=== PATIENT | male | born 1970 | race Hispanic/Latino ===

== ENCOUNTER 2019-11-06 18:24 | Emergency (ER) | payer OTHER ==
[~2019-11-06] VITALS: Ht 167.6 cm; Wt 81.6 kg
[2019-11-06] MEDS ORDERED: ASPIRIN 81 MG CHEW TAB PO ONE (19:00)
[2019-11-06 19:16] LABS: BASOPHILS # (AUTO) 0.1 (0.0-0.1); BASOPHILS % 0.5 % (0.0-1.0); EOSINOPHILS # (AUTO) 0.3 (0.0-0.4); EOSINOPHILS % 2.6 % (0.0-6.0); HEMATOCRIT 43.6 % (38.2-49.6); HEMOGLOBIN 13.5 g/dL (14.0-18.0); LYMPHOCYTES # (AUTO) 1.1 (1.0-3.2); LYMPHOCYTES % 11.2 % (18.0-39.1); MEAN CORPUSCULAR HEMOGLOBIN 25.7 pg (28-32); MEAN CORPUSCULAR VOLUME 82.9 fL (81-99); MONOCYTES # (AUTO) 0.9 (0.2-0.8); MONOCYTES % 9.4 % (4.4-11.3); NEUTROPHILS # (AUTO) 7.6 (2.1-6.9); NEUTROPHILS % 75.9 % (38.7-80.0); PLATELET COUNT 378 x10e3/uL (140-360); RED BLOOD COUNT 5.26 x10e6/uL (4.3-5.7); RED CELL DISTRIBUTION WIDTH 16.2 % (11.7-14.4)
[2019-11-06 19:26] LABS: INR 0.96; PROTHROMBIN TIME 13.3 seconds (11.9-14.5)
[2019-11-06 19:27] LABS: PARTIAL THROMBOPLASTIN TIME 30.5 seconds (23.8-35.5)
[2019-11-06 19:36] LABS: ALBUMIN 3.3 g/dL (3.5-5.0); ALBUMIN/GLOBULIN RATIO 0.9 (0.8-2.0); ANION GAP 11.7 mmol/L (8-16); CALCIUM 9.2 mg/dL (8.4-10.2); CREATININE, SERUM 1.81 mg/dL (0.72-1.25); POTASSIUM 3.7 mmol/L (3.5-5.1)
[2019-11-06 19:44] LABS: AMPHETAMINES SCREEN,URINE POSITIVE (NEGATIVE); PHENCYCLIDINE SCREEN,URINE NEGATIVE (NEGATIVE)
[2019-11-06 19:44] LABS: CREATINE KINASE MB 3.7 ng/mL (0-5.0)
[2019-11-06 19:45] LABS: BENZODIAZEPINES SCREEN,URINE NEGATIVE (NEGATIVE)
--- NOTE | 2019-11-06 20:50 | Diagnostic Imaging Report ---
EXAMINATION: CHEST SINGLE (PORTABLE) INDICATION: Chest pain. COMPARISON: None FINDINGS: TUBES and LINES: None. Single lead left-sided AICD. LUNGS: Lungs are mildly hyperinflated. Patchy density in the lung bases may represent subsegmental atelectasis. PLEURA: No pleural effusion or pneumothorax. HEART AND MEDIASTINUM: Cardiac size is mildly enlarged. BONES AND SOFT TISSUES: No acute osseous lesion. Soft tissues are unremarkable. UPPER ABDOMEN: No free air under the diaphragm. IMPRESSION: Bibasilar subsegmental atelectasis. Signed by: Dr. Darian Agee M.D. on 11/06/2019 8:47 PM
[2019-11-06] MEDS ORDERED: LASIX40 MG PO (22:14)
--- NOTE | 2019-11-06 22:40 | Emergency Department Note ---
History of Present Illnes History of Present Illness Chief Complaint: Chest Pain History of Present Illness This is a 49 year old male . Chief Complaint Comment PATIENT IN FROM HOME WITH COMPLAINTS OF CHEST PAIN X 2 HOURS; PATIENT WITH HISTORY OF CONGESTIVE HEART FAILURE AND IN; PATIENT WITH PACEMAKER/AICD. PATIENT APPEARS IN NO DISTRESS, RESP EVEN AND NONLABORED, RATES PAIN 8/10, EKG DONE IN TRIAGE Historian: Patient, Family Member Arrival Mode: Car Past Medical/Family History Physician Review I have reviewed the patient's past medical and family history. Any updates have been documented here. Past Medical History Recent Fever: No Clinical Suspicion of Infectio: No New/Unexplained Change in Ment: No Past Medical History: Hypertension, CHF, [place], Asthma Past Surgical History: Pacer/AICD Social History Smoking Cessation: Smoker current status unk Alcohol Use: None Any Illegal Drug Use: Yes (METH) TB Exposure/Symptoms: No Physically hurt or threatened: No Family History Family history of heart diseas: No Other Last Tetanus: UNKNOWN Any Pre-Existing Lines (PICC,: No Is patient up to date on immun: Yes Last Flu: DENIES Last Pneumovax: DENIES Physical Exam Related Data Allergies: Coded Allergies: iodine (Verified Allergy, Mild, TINGLING AND HIVES, 11/06/19) Triage Vital Signs Vital Signs Date Time Temp Pulse Resp B/P (MAP) Pulse Ox O2 Delivery O2 Flow Rate FiO2 11/06/19 18:40 96.6 73 18 94/60 97 Vital signs reviewed: Yes Physical Exam CONSTITUTIONAL Constitutional: Present well-developed, Present well-nourished HENT HENT: Present normocephalic, Present atraumatic, Present oropharynx clear/moshe st, Present nose normal HENT L/R: Present left ext ear normal, Present right ext ear normal EYES Eyes: Reports PERRL, Reports conjunctivae normal NECK Neck: Present ROM normal PULMONARY Pulmonary: Present effort normal, Present breath sounds normal CARDIOVASCULAR Cardiovascular: Present regular rhythm, Present heart sounds normal, Present capillary refill normal, Present normal rate GASTROINTESTINAL Abdominal: Present soft, Present nontender, Present bowel sounds normal GENITOURINARY Genitourinary: Present exam deferred SKIN Skin: Present warm, Present dry MUSCULOSKELETAL Musculoskeletal: Present ROM normal NEUROLOGICAL Neurological: Present alert, Present oriented x 3, Present no gross motor or sensory deficits PSYCHOLOGICAL Psychological: Present mood/affect normal, Present judgement normal Results Laboratory Result Diagram: 11/06/19 1859 11/06/19 1859 Laboratory Laboratory Tests Test 11/06/19 19:01 11/06/19 18:59 Urine Opiates Screen Negative (NEGATIVE) Urine Methadone Screen Negative (NEGATIVE) Urine Barbiturates Screen Negative (NEGATIVE) Urine Phencyclidine Screen Negative (NEGATIVE) Urine Amphetamines Screen Positive (NEGATIVE) Urine Methamphetamines Screen Positive (NEGATIVE) Urine Benzodiazepines Screen Negative (NEGATIVE) Urine Cocaine Screen Negative (NEGATIVE) Urine Cannabinoids Screen Negative (NEGATIVE) White Blood Count 9.97 x10e3/uL (4.8-10.8) Red Blood Count 5.26 x10e6/uL (4.3-5.7) Hemoglobin 13.5 g/dL (14.0-18.0) Hematocrit 43.6 % (38.2-49.6) Mean Corpuscular Volume 82.9 fL (81-99) Mean Corpuscular Hemoglobin 25.7 pg (28-32) Mean Corpuscular Hemoglobin Concent 31.0 g/dL (31-35) Red Cell Distribution Width 16.2 % (11.7-14.4) Platelet Count 378 x10e3/uL (140-360) Neutrophils (%) (Auto) 75.9 % (38.7-80.0) Lymphocytes (%) (Auto) 11.2 % (18.0-39.1) Monocytes (%) (Auto) 9.4 % (4.4-11.3) Eosinophils (%) (Auto) 2.6 % (0.0-6.0) Basophils (%) (Auto) 0.5 % (0.0-1.0) Neutrophils # (Auto) 7.6 (2.1-6.9) Lymphocytes # (Auto) 1.1 (1.0-3.2) Monocytes # (Auto) 0.9 (0.2-0.8) Eosinophils # (Auto) 0.3 (0.0-0.4) Basophils # (Auto) 0.1 (0.0-0.1) Absolute Immature Granulocyte (auto 0.04 x10e3/uL (0-0.1) Prothrombin Time 13.3 seconds (11.9-14.5) Prothromb Time International Ratio 0.96 Activated Partial Thromboplast Time 30.5 seconds (23.8-35.5) Sodium Level 137 mmol/L (136-145) Potassium Level 3.7 mmol/L (3.5-5.1) Chloride Level 104 mmol/L (98-107) Carbon Dioxide Level 25 mmol/L (22-29) Anion Gap 11.7 mmol/L (8-16) Blood Urea Nitrogen 25 mg/dL (7-26) Creatinine 1.81 mg/dL (0.72-1.25) Estimat Glomerular Filtration Rate 40 ML/MIN (60-) BUN/Creatinine Ratio 14 (6-25) Glucose Level 109 mg/dL (74-118) Calcium Level 9.2 mg/dL (8.4-10.2) Total Bilirubin 0.9 mg/dL (0.2-1.2) Aspartate Amino Transf (AST/SGOT) 28 IU/L (5-34) Alanine Aminotransferase (ALT/SGPT) 24 IU/L (0-55) Alkaline Phosphatase 89 IU/L (40-150) Creatine Kinase 379 IU/L (30-200) Creatine Kinase MB 3.70 ng/mL (0-5.0) Troponin I 0.028 ng/mL (0-0.300) B-Type Natriuretic Peptide 439.9 pg/mL (0-100) Total Protein 7.1 g/dL (6.5-8.1) Albumin 3.3 g/dL (3.5-5.0) Globulin 3.8 g/dL (2.3-3.5) Albumin/Globulin Ratio 0.9 (0.8-2.0) Lab results reviewed: Yes Imaging Imaging results reviewed: Yes Impressions IMPRESSION: Bibasilar subsegmental atelectasis. Procedures 12 Lead ECG Interpretation ECG Interpretation : ECG: ECG 1 Developmental Services Worker: Interpreted by ED physician Prior ECG tracings: reviewed QRS axis: normal ST segments normal: Yes T waves normal: Yes Clinical Impression: normal ECG Assessment & Plan Medical Decision Making MDM 49-year-old well-appearing male arrives to the ED with complaints of chest pain triage prior to arrival. Unravels the ED and cardiac markers and chest x-ray unremarkable. Patient has a high risk of acute coronary syndrome secondary to underlying medical history. Patient refused a second set of cardiac markers and EKG, reported feeling well. 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 Patient understands the risk of leaving without complete medical care. Patient was understanding and patient will return to the wrist from any time. Patient has decided to leave the hospital against medical advice. At this time re-evaluated patient and discussed at bedside the followin. Capacity: Patient has capacity to communicate, ability to understand information, and the ability to manipulate the information presented to make a logical decision. 2. Communication of risk: Discussed with patient at bedside potential risks, potential outcomes, alternative approaches in a patient-centered manner. We discussed the specific risks of an acute coronary event, unstable angina or any other acute coronary syndrome, including worsening condition, and . Patient understands we would welcome a return visit at any time to complete the work-up. At this time, patient is discharged from my care. Assessment & Plan Final Impression: (1) Chest pain (2) Methamphetamine abuse (3) Amphetamine abuse Depart Disposition: HOME, SELF-CARE Last Vital Signs Date Time Temp Pulse Resp B/P (MAP) Pulse Ox O2 Delivery O2 Flow Rate FiO2 11/06/19 22:09 79 20 152/95 100 11/06/19 18:40 96.6 Home Meds Active Scripts Furosemide (LASIX) 40 Mg Tablet, 40 MG PO DAILY, #30 TAB Prov:CHRIS ROBERTSON DO 11/06/19 Medications in the ED Aspirin 81 mg PRN ONCE PO ; Start 11/06/19 at 19:00; Stop 11/06/19 at 19:04; Status DC CHRIS ROBERTSON DO Nov 06, 2019 22:40
== END 2019-11-06 22:20 | disposition home or self-care (01) ==
LOC: ER 20:11
DX: R07.9 Chest pain, unspecified (principal); F15.10 Other stimulant abuse, uncomplicated; I10 Essential (primary) hypertension; I50.9 Heart failure, unspecified; I25.2 Old myocardial infarction; Z95.810 Presence of automatic (implantable) cardiac defibrillator; F17.210 Nicotine dependence, cigarettes, uncomplicated
CPT/HCPCS: 36415; 71045; 80053; 80307; 82550; 82553; 83880; 84484; 85025; 85610; 85730; 93005; 99284

== ENCOUNTER 2022-01-13 07:07 | Inpatient (IN) | payer OTHER ==
[~2022-01-13] VITALS: Ht 167.6 cm; Wt 81.6 kg
[2022-01-13] VITALS (26 sets, daily range): BP systolic 126–166; BP diastolic 62–115
[~2022-01-13 07:07] MED LIST: LASIX40 MG PO; SODIUM CHLORIDE FLUSH 10 ML SYR IV PRN
[2022-01-13] MEDS ORDERED: METHYLPREDNISOLONE SOD SUCC 125 MG/2ML VIAL IV ONE ×2 (07:30→12:45)
[2022-01-13] MEDS ORDERED: ALBUTEROL/IPRATROPIUM 3 ML NEB NEB ONE ×2 (07:30→13:30)
[2022-01-13 07:35] LABS: BASOPHILS % 0.3 % (0.0-1.0); EOSINOPHILS # (AUTO) 0.2 (0.0-0.4); HEMOGLOBIN 11.4 g/dL (14.0-18.0); LYMPHOCYTES # (AUTO) 1.3 (1.0-3.2); LYMPHOCYTES % 22.5 % (18.0-39.1); MEAN CORPUSCULAR HEMOGLOBIN 27.1 pg (28-32); MEAN CORPUSCULAR HGB CONC 31.7 g/dL (31-35); MEAN CORPUSCULAR VOLUME 85.5 fL (81-99); MONOCYTES # (AUTO) 0.8 (0.2-0.8); MONOCYTES % 12.7 % (4.4-11.3); NEUTROPHILS # (AUTO) 3.6 (2.1-6.9); NEUTROPHILS % 61.3 % (38.7-80.0); PLATELET COUNT 223 x10e3/uL (140-360); RED BLOOD COUNT 4.21 x10e6/uL (4.3-5.7); RED CELL DISTRIBUTION WIDTH 18.2 % (11.7-14.4)
[2022-01-13 07:45] LABS: INR 1.17; PROTHROMBIN TIME 15.9 seconds (11.9-14.5)
[2022-01-13 07:46] LABS: PARTIAL THROMBOPLASTIN TIME 36.7 seconds (23.8-35.5)
[2022-01-13 07:57] LABS: ALBUMIN 3.3 g/dL (3.5-5.0); ALBUMIN/GLOBULIN RATIO 0.8 (0.8-2.0); ANION GAP 14.8 mmol/L (8-16); CALCIUM 8.6 mg/dL (8.4-10.2); CREATININE, SERUM 1.45 mg/dL (0.72-1.25); POTASSIUM 3.8 mmol/L (3.5-5.1)
[2022-01-13] MEDS ORDERED: ASPIRIN 325 MG TAB PO ONE (08:00)
[2022-01-13 08:41] LABS: CLARITY,URINE CLEAR (CLEAR); COLOR,URINE YELLOW (YELLOW); LEUKOCYTE ESTERASE ,URINE NEGATIVE (NEGATIVE); NITRITE,URINE NEGATIVE (NEGATIVE)
[2022-01-13 08:42] LABS: KETONES,URINE NEGATIVE (NEGATIVE); PROTEIN,URINE DIPSTICK >=300 (NEGATIVE)
[2022-01-13 08:48] LABS: AMPHETAMINES SCREEN,URINE POSITIVE (NEGATIVE)
[2022-01-13 08:49] LABS: BENZODIAZEPINES SCREEN,URINE NEGATIVE (NEGATIVE); PHENCYCLIDINE SCREEN,URINE NEGATIVE (NEGATIVE)
[2022-01-13 08:57] LABS: BACTERIA,URINE FEW /HPF; EPITHELIAL CELLS,URINE RARE /LPF; RBC,URINE 0-5 /HPF (0-5); WBC,URINE (MAN) 0-5 /HPF (0-5)
[2022-01-13] MEDS ORDERED: FUROSEMIDE INJ 10 MG/ML 4 ML VIAL IV ONE ×2 (09:00→10:45)
[2022-01-13] MEDS ORDERED: ALBUTEROL/IPRATROPIUM 3 ML NEB NEB PRN (09:30)
[2022-01-13] MEDS ORDERED: ONDANSETRON HCL INJ 2MG/ML 2ML 2 MG/ML VIAL IV PRN (09:30)
[2022-01-13] MEDS ORDERED: ASPIRIN 81 MG CHEW TAB PO ONE (09:30)
[2022-01-13] MEDS ORDERED: SODIUM CHLORIDE 0.9% 250ML 250 ML ONE (09:37)
[2022-01-13] MEDS ORDERED: ENOXAPARIN INJ 80 MG/0.8 ML SYR SC STA (10:30)
[2022-01-13] MEDS ORDERED: DIPHENHYDRAMINE HCL INJ 50 MG/ML VIAL IV ONE (10:30)
[2022-01-13] MEDS ORDERED: ONDANSETRON HCL INJ 2MG/ML 2ML 2 MG/ML VIAL IV ONE (10:30)
[2022-01-13] MEDS ORDERED: FAMOTIDINE 20 MG/2 ML VIAL IV ONE (10:30)
[2022-01-13] MEDS ORDERED: NITROGLYCERIN 2% OINT 1 GM PKT TOP ONE (10:45)
[2022-01-13 11:22] LABS: ABG PH 7.44 (7.35-7.45)
[2022-01-13 11:23] LABS: ABG PCO2 31 mmHg (35-45)
[2022-01-13 11:24] LABS: ABG HCO3 17 mmol/L (22-26); ABG PO2 108 mmHg (80-105); ABG TCO2 18
[2022-01-13] MEDS ORDERED: ENOXAPARIN INJ 80 MG/0.8 ML SYR SC ONE (11:30)
[2022-01-13] MEDS ORDERED: SODIUM CHLORIDE 0.9% 1000ML 1,000 ML IV ONE (12:45)
[2022-01-13 15:12] LABS: CREATINE KINASE MB 2.8 ng/mL (0-5.0)
[2022-01-13] MEDS: VALSARTAN/SACUBITRIL 24MG/26MG 1 EA TAB PO SCH (21:43)
[2022-01-13] MEDS: FUROSEMIDE INJ 10 MG/ML 4 ML VIAL IV SCH (21:43)
[2022-01-14] VITALS (65 sets, daily range): BP systolic 4–163; BP diastolic 65–140
[2022-01-14 06:47] LABS: BASOPHILS % 0.1 % (0.0-1.0); HEMATOCRIT 39.6 % (38.2-49.6); HEMOGLOBIN 12.5 g/dL (14.0-18.0); LYMPHOCYTES # (AUTO) 0.9 (1.0-3.2); LYMPHOCYTES % 9.1 % (18.0-39.1); MEAN CORPUSCULAR HEMOGLOBIN 26.6 pg (28-32); MEAN CORPUSCULAR HGB CONC 31.6 g/dL (31-35); MEAN CORPUSCULAR VOLUME 84.3 fL (81-99); MONOCYTES # (AUTO) 1.8 (0.2-0.8); MONOCYTES % 18.3 % (4.4-11.3); NEUTROPHILS # (AUTO) 6.9 (2.1-6.9); NEUTROPHILS % 72.2 % (38.7-80.0); PLATELET COUNT 247 x10e3/uL (140-360); RED CELL DISTRIBUTION WIDTH 17.5 % (11.7-14.4)
[2022-01-14 07:05] LABS: ALBUMIN 3.1 g/dL (3.5-5.0); ALBUMIN/GLOBULIN RATIO 0.8 (0.8-2.0); ANION GAP 17.5 mmol/L (8-16); CALCIUM 8.6 mg/dL (8.4-10.2); CREATININE, SERUM 1.4 mg/dL (0.72-1.25); POTASSIUM 3.5 mmol/L (3.5-5.1)
[2022-01-14 08:33] LABS: CREATINE KINASE MB 2.2 ng/mL (0-5.0)
[2022-01-14] MEDS: FUROSEMIDE INJ 10 MG/ML 4 ML VIAL IV SCH ×2 (08:56→22:09)
[2022-01-14] MEDS: ASPIRIN 81 MG CHEW TAB PO SCH (08:58)
[2022-01-14] MEDS: VALSARTAN/SACUBITRIL 24MG/26MG 1 EA TAB PO SCH ×2 (08:58→22:09)
[2022-01-14] MEDS ORDERED: CARVEDILOL 3.125 MG TAB PO SCH (09:00)
[2022-01-14] MEDS ORDERED: POTASSIUM CHLORIDE 20 MEQ TAB CR PO ONE (13:00)
[2022-01-14 14:27] LABS: CREATINE KINASE MB 2.1 ng/mL (0-5.0)
[2022-01-14] MEDS: CARVEDILOL 3.125 MG TAB PO SCH (16:40)
[2022-01-15] VITALS (7 sets, daily range): BP systolic 99–124; BP diastolic 64–88
[2022-01-15 07:15] LABS: BASOPHILS # (AUTO) 0.1 (0.0-0.1); BASOPHILS % 0.7 % (0.0-1.0); EOSINOPHILS # (AUTO) 0.2 (0.0-0.4); EOSINOPHILS % 1.9 % (0.0-6.0); HEMATOCRIT 41.7 % (38.2-49.6); HEMOGLOBIN 13.7 g/dL (14.0-18.0); LYMPHOCYTES # (AUTO) 1.6 (1.0-3.2); LYMPHOCYTES % 19.5 % (18.0-39.1); MEAN CORPUSCULAR HEMOGLOBIN 26.9 pg (28-32); MEAN CORPUSCULAR HGB CONC 32.9 g/dL (31-35); MEAN CORPUSCULAR VOLUME 81.9 fL (81-99); MONOCYTES # (AUTO) 1.2 (0.2-0.8); MONOCYTES % 14.5 % (4.4-11.3); NEUTROPHILS # (AUTO) 5.1 (2.1-6.9); PLATELET COUNT 289 x10e3/uL (140-360); RED BLOOD COUNT 5.09 x10e6/uL (4.3-5.7); RED CELL DISTRIBUTION WIDTH 18.3 % (11.7-14.4)
[2022-01-15 07:43] LABS: ALBUMIN 2.8 g/dL (3.5-5.0); ALBUMIN/GLOBULIN RATIO 0.8 (0.8-2.0); ANION GAP 12.6 mmol/L (8-16); CALCIUM 8.3 mg/dL (8.4-10.2); CREATININE, SERUM 1.38 mg/dL (0.72-1.25); POTASSIUM 3.6 mmol/L (3.5-5.1)
[2022-01-15] MEDS: CARVEDILOL 3.125 MG TAB PO SCH ×2 (08:25→17:04)
[2022-01-15] MEDS: VALSARTAN/SACUBITRIL 24MG/26MG 1 EA TAB PO SCH ×2 (08:26→21:35)
[2022-01-15] MEDS: ASPIRIN 81 MG CHEW TAB PO SCH (08:26)
[2022-01-15] MEDS: FUROSEMIDE INJ 10 MG/ML 4 ML VIAL IV SCH (08:27)
[2022-01-15] MEDS ORDERED: SODIUM CHLORIDE 0.9% 250ML 250 ML ONE (08:33)
[2022-01-15] MEDS ORDERED: ONDANSETRON HCL 4 MG ORAL DISINTEGRATING TAB PO PRN (11:00)
[2022-01-15] MEDS: FUROSEMIDE 40 MG TAB PO SCH (17:04)
[2022-01-16 01:06] VITALS: BP 117/70
[2022-01-16 05:00] VITALS: BP 133/93
[2022-01-16] MEDS: FUROSEMIDE 40 MG TAB PO SCH (06:50)
[2022-01-16 07:44] VITALS: BP 135/88
[2022-01-16] MEDS ORDERED: AZITHROMYCIN 250 MG TAB PO SCH (09:00)
[2022-01-16 09:16] VITALS: BP 135/88
[2022-01-16] MEDS: ASPIRIN 81 MG CHEW TAB PO SCH (09:20)
[2022-01-16] MEDS: VALSARTAN/SACUBITRIL 24MG/26MG 1 EA TAB PO SCH (09:20)
[2022-01-16] MEDS: CARVEDILOL 3.125 MG TAB PO SCH (09:20)
[2022-01-16] MEDS ORDERED: CARVEDILOL3.125 MG PO (10:03)
[2022-01-16] MEDS ORDERED: LASIX40 MG PO (10:05)
[2022-01-16] MEDS ORDERED: POTASSIUM CHLO20 ME1 PO (10:06)
[2022-01-16] MEDS ORDERED: ENTRESTO 24 MG1 EACH (10:07)
[2022-01-16] MEDS ORDERED: ATORVASTATIN CA20 MG PO (10:07)
== END 2022-01-16 10:24 | disposition home or self-care (01) | DRG 291 ==
LOC: ER 07:11 → ERHOLD 09:33 → ICU 14:30 → MED/SURG2 01-14 17:48
DX: I13.0 Hypertensive heart and chronic kidney disease with heart failure and stage 1 through stage 4 chronic kidney disease, or unspecified chronic kidney disease (principal); I50.23 Acute on chronic systolic (congestive) heart failure; J45.901 Unspecified asthma with (acute) exacerbation; N17.9 Acute kidney failure, unspecified; N18.9 Chronic kidney disease, unspecified; E11.22 Type 2 diabetes mellitus with diabetic chronic kidney disease; F17.200 Nicotine dependence, unspecified, uncomplicated; F15.10 Other stimulant abuse, uncomplicated; I25.10 Atherosclerotic heart disease of native coronary artery without angina pectoris; I08.1 Rheumatic disorders of both mitral and tricuspid valves; K76.1 Chronic passive congestion of liver; D64.9 Anemia, unspecified; Z91.041 Radiographic dye allergy status; Z95.810 Presence of automatic (implantable) cardiac defibrillator; Z72.89 Other problems related to lifestyle; Z20.822 Contact with and (suspected) exposure to COVID-19
CPT/HCPCS: 36415; 71045; 71250; 74176; 78580; 80053; 80307; 81001; 82140; 82550; 82553; 82805; 83605; 83880; 84484; 85025; 85610; 85730; 87040; 93005; 93306; 94660; 94799; 99285; A9540; J0456; J0696; J1650; J1940; J2930; J7050

== ENCOUNTER 2022-02-18 20:27 | Emergency (ER) | payer OTHER ==
[~2022-02-18] VITALS: Ht 167.6 cm; Wt 81.6 kg
[~2022-02-18 20:27] MED LIST changes: +ATORVASTATIN CA20 MG PO; +CARVEDILOL3.125 MG PO; +ENTRESTO 24 MG1 EACH; +POTASSIUM CHLO20 ME1 PO; -SODIUM CHLORIDE FLUSH 10 ML SYR IV PRN
[2022-02-18] MEDS ORDERED: SODIUM CHLORIDE 0.9% 1000ML 1,000 ML IV STA ×2 (21:02→21:08)
[2022-02-18] MEDS ORDERED: ACETAMINOPHEN 325 MG TAB PO STA (21:05)
[2022-02-18 21:33] LABS: ALBUMIN 3.3 g/dL (3.5-5.0); ALBUMIN/GLOBULIN RATIO 0.8 (0.8-2.0); ANION GAP 13.5 mmol/L (8-16); CALCIUM 8.5 mg/dL (8.4-10.2); CREATININE, SERUM 1.93 mg/dL (0.72-1.25); POTASSIUM 3.5 mmol/L (3.5-5.1)
[2022-02-18 21:38] LABS: AMPHETAMINES SCREEN,URINE POSITIVE (NEGATIVE); BENZODIAZEPINES SCREEN,URINE NEGATIVE (NEGATIVE); CLARITY,URINE CLEAR (CLEAR); COLOR,URINE YELLOW (YELLOW); KETONES,URINE NEGATIVE (NEGATIVE); LEUKOCYTE ESTERASE ,URINE NEGATIVE (NEGATIVE); NITRITE,URINE NEGATIVE (NEGATIVE); PHENCYCLIDINE SCREEN,URINE NEGATIVE (NEGATIVE); PROTEIN,URINE DIPSTICK NEGATIVE (NEGATIVE); URINE UROBILINOGEN 1 mg/dL (0.2 - 1)
[2022-02-18 21:41] LABS: BACTERIA,URINE FEW /HPF; EPITHELIAL CELLS,URINE FEW /LPF; RBC,URINE 0-5 /HPF (0-5); WBC,URINE (MAN) 0-5 /HPF (0-5)
[2022-02-18 21:44] LABS: CREATINE KINASE MB 0.4 ng/mL (0-5.0)
[2022-02-18 21:45] LABS: BASOPHILS % 0.5 % (0.0-1.0); EOSINOPHILS # (AUTO) 0.1 (0.0-0.4); EOSINOPHILS % 1.1 % (0.0-6.0); HEMATOCRIT 39.1 % (38.2-49.6); HEMOGLOBIN 12.5 g/dL (14.0-18.0); LYMPHOCYTES # (AUTO) 0.5 (1.0-3.2); MEAN CORPUSCULAR HEMOGLOBIN 27.8 pg (28-32); MEAN CORPUSCULAR VOLUME 87.1 fL (81-99); MONOCYTES # (AUTO) 1.9 (0.2-0.8); NEUTROPHILS # (AUTO) 4.1 (2.1-6.9); NEUTROPHILS % 60.9 % (38.7-80.0); PLATELET COUNT 254 x10e3/uL (140-360); RED BLOOD COUNT 4.49 x10e6/uL (4.3-5.7); RED CELL DISTRIBUTION WIDTH 16.8 % (11.7-14.4)
[2022-02-18] MEDS ORDERED: TAMIFLU75 MG PO (22:12)
[2022-02-18 23:24] VITALS: BP 140/91
== END 2022-02-18 22:41 | disposition home or self-care (01) ==
LOC: ER 20:51
DX: R50.9 Fever, unspecified (principal); J10.1 Influenza due to other identified influenza virus with other respiratory manifestations; R05.9 Cough, unspecified; F15.10 Other stimulant abuse, uncomplicated; Z20.822 Contact with and (suspected) exposure to COVID-19; R94.31 Abnormal electrocardiogram [ECG] [EKG]
CPT/HCPCS: 36415; 71045; 80053; 80307; 81001; 82550; 82553; 83605; 83880; 84484; 85025; 87040; 87400; 93005; 99284; J2543; J7030; U0002

== ENCOUNTER 2024-07-12 10:50 | Inpatient (IN) | payer MEDICAID, BC ==
[2024-07-12] VITALS (8 sets, daily range): BP systolic 146–156; BP diastolic 87–110; PULSE 86–98; RESP 16–24; TEMP 97.8–98.2; O2SAT 95–100
[~2024-07-12] VITALS: Ht 167.6 cm; Wt 79.5 kg
[~2024-07-12 10:50] MED LIST changes: +TAMIFLU75 MG PO
[2024-07-12] MEDS: ACETAMINOPHEN 325 MG TAB PO STA (11:36)
[2024-07-12 11:49] LABS: BASOPHILS % 0.5 % (0.0-1.0); EOSINOPHILS # (AUTO) 0.2 (0.0-0.4); EOSINOPHILS % 3.1 % (0.0-6.0); HEMATOCRIT 38.5 % (38.2-49.6); HEMOGLOBIN 12.2 g/dL (14.0-18.0); LYMPHOCYTES # (AUTO) 1.2 (1.0-3.2); LYMPHOCYTES % 20.1 % (18.0-39.1); MEAN CORPUSCULAR HEMOGLOBIN 28.8 pg (28-32); MEAN CORPUSCULAR HGB CONC 31.7 g/dL (31-35); MONOCYTES # (AUTO) 0.9 (0.2-0.8); MONOCYTES % 13.8 % (4.4-11.3); NEUTROPHILS # (AUTO) 3.9 (2.1-6.9); NEUTROPHILS % 62.3 % (38.7-80.0); PLATELET COUNT 214 x10e3/uL (140-360); RED BLOOD COUNT 4.23 x10e6/uL (4.3-5.7); RED CELL DISTRIBUTION WIDTH 15.4 % (11.7-14.4); WHITE BLOOD COUNT 6.17 x10e3/uL (4.8-10.8)
[2024-07-12 12:02] LABS: ALBUMIN/GLOBULIN RATIO 0.8 (0.8-2.0); ANION GAP 15.2 mmol/L (8-16); BILIRUBIN,TOTAL 2.4 mg/dL (0.2-1.2); CALCIUM 8.6 mg/dL (8.4-10.2); CREATININE, SERUM 1.78 mg/dL (0.72-1.25); TOTAL PROTEIN 6.8 g/dL (6.5-8.1)
[2024-07-12 12:03] LABS: POTASSIUM 3.2 mmol/L (3.5-5.1)
[2024-07-12 12:06] LABS: AMPHETAMINES SCREEN,URINE POSITIVE (NEGATIVE); BENZODIAZEPINES SCREEN,URINE NEGATIVE (NEGATIVE); CANNABINOIDS SCREEN,URINE NEGATIVE (NEGATIVE); COCAINE SCREEN,URINE NEGATIVE (NEGATIVE); METHADONE SCREEN, URINE NEGATIVE (NEGATIVE); OPIATES SCREEN,URINE NEGATIVE (NEGATIVE); PHENCYCLIDINE SCREEN,URINE NEGATIVE (NEGATIVE)
[2024-07-12 12:08] LABS: TROPONIN I 0.071 ng/mL (0-0.300)
[2024-07-12 12:42] LABS: STREPTOCOCCUS GRP A ANTIGEN NEGATIVE (NEGATIVE)
[2024-07-12 12:52] LABS: CORONAVIRUS COVID-19 AG NEGATIVE (NEGATIVE); INFLUENZA A AG NEGATIVE (NEGATIVE); INFLUENZA B AG NEGATIVE (NEGATIVE)
[2024-07-12] MEDS: FUROSEMIDE INJ 10 MG/ML 4 ML VIAL IV SCH (13:26)
[2024-07-12] MEDS ORDERED: LOSARTAN POTASS25 MG PO (18:42)
[2024-07-12 20:58] LABS: TROPONIN I 0.056 ng/mL (0-0.300)
[2024-07-13] VITALS (10 sets, daily range): BP systolic 140–156; BP diastolic 87–110; PULSE 76–91; RESP 16–20; TEMP 97.4–99.1; O2SAT 96–100
[2024-07-13] MEDS: SODIUM CHLORIDE 0.9% 250ML 250 ML ONE (01:19)
[2024-07-13 06:40] LABS: BASOPHILS # (AUTO) 0.1 (0.0-0.1); BASOPHILS % 0.9 % (0.0-1.0); EOSINOPHILS # (AUTO) 0.3 (0.0-0.4); EOSINOPHILS % 4.6 % (0.0-6.0); HEMATOCRIT 39.7 % (38.2-49.6); HEMOGLOBIN 12.9 g/dL (14.0-18.0); LYMPHOCYTES # (AUTO) 1.4 (1.0-3.2); LYMPHOCYTES % 24.6 % (18.0-39.1); MEAN CORPUSCULAR HEMOGLOBIN 28.9 pg (28-32); MEAN CORPUSCULAR HGB CONC 32.5 g/dL (31-35); MONOCYTES # (AUTO) 0.7 (0.2-0.8); NEUTROPHILS # (AUTO) 3.2 (2.1-6.9); NEUTROPHILS % 56.7 % (38.7-80.0); PLATELET COUNT 215 x10e3/uL (140-360); RED BLOOD COUNT 4.46 x10e6/uL (4.3-5.7); RED CELL DISTRIBUTION WIDTH 15.3 % (11.7-14.4); WHITE BLOOD COUNT 5.68 x10e3/uL (4.8-10.8)
[2024-07-13 07:10] LABS: ALBUMIN 2.7 g/dL (3.5-5.0); ALBUMIN/GLOBULIN RATIO 0.8 (0.8-2.0); ANION GAP 16.3 mmol/L (8-16); BILIRUBIN,TOTAL 2.9 mg/dL (0.2-1.2); CALCIUM 8.8 mg/dL (8.4-10.2); CREATININE, SERUM 1.59 mg/dL (0.72-1.25); TOTAL PROTEIN 6.3 g/dL (6.5-8.1)
[2024-07-13 07:11] LABS: POTASSIUM 3.3 mmol/L (3.5-5.1)
[2024-07-13 07:41] LABS: TROPONIN I 0.067 ng/mL (0-0.300)
[2024-07-13] MEDS: LOSARTAN POTASSIUM 25 MG TAB PO SCH (13:32)
[2024-07-13] MEDS: CARVEDILOL 3.125 MG TAB PO SCH (17:21)
[2024-07-13] MEDS ORDERED: DEXTROSE 50% SYRINGE 50 ML IV PRN (20:30)
[2024-07-13] MEDS: ATORVASTATIN 20 MG TAB PO SCH (21:21)
[2024-07-13] MEDS: INSULIN REGULAR, HUMAN 100 UNIT/1 ML SQ SCH (21:51)
[2024-07-14] VITALS (9 sets, daily range): BP systolic 116–137; BP diastolic 82–96; PULSE 68–78; RESP 18–20; TEMP 97.5–98.2; O2SAT 98–100
[2024-07-14 06:10] LABS: BASOPHILS % 0.6 % (0.0-1.0); EOSINOPHILS # (AUTO) 0.3 (0.0-0.4); HEMATOCRIT 39.9 % (38.2-49.6); HEMOGLOBIN 12.9 g/dL (14.0-18.0); LYMPHOCYTES # (AUTO) 0.7 (1.0-3.2); LYMPHOCYTES % 15.4 % (18.0-39.1); MEAN CORPUSCULAR HEMOGLOBIN 28.6 pg (28-32); MEAN CORPUSCULAR HGB CONC 32.3 g/dL (31-35); MEAN CORPUSCULAR VOLUME 88.5 fL (81-99); MONOCYTES # (AUTO) 0.6 (0.2-0.8); MONOCYTES % 11.6 % (4.4-11.3); NEUTROPHILS # (AUTO) 3.2 (2.1-6.9); NEUTROPHILS % 66.2 % (38.7-80.0); PLATELET COUNT 186 x10e3/uL (140-360); RED BLOOD COUNT 4.51 x10e6/uL (4.3-5.7); RED CELL DISTRIBUTION WIDTH 15.2 % (11.7-14.4); WHITE BLOOD COUNT 4.81 x10e3/uL (4.8-10.8)
[2024-07-14 06:26] LABS: CALCIUM 8.6 mg/dL (8.4-10.2); CREATININE, SERUM 1.94 mg/dL (0.72-1.25)
[2024-07-14 06:47] LABS: THYROID STIMULATING HORMONE 4.908 uIU/mL (0.350-4.940)
[2024-07-14 08:58] LABS: ABG HCO3 24 mmol/L (22-26); ABG PCO2 36 mmHg (35-45); ABG PH 7.43 (7.35-7.45); ABG PO2 34 mmHg (80-105); ABG TCO2 25
[2024-07-14] MEDS: FAMOTIDINE 20 MG TAB PO SCH (09:30)
[2024-07-14] MEDS ORDERED: POTASSIUM CHLORIDE 20 MEQ TAB CR PO STA (16:00)
[2024-07-14] MEDS: ENOXAPARIN SOD INJ 40 MG/0.4 ML SYR SC SCH (17:56)
[2024-07-14] MEDS: POTASSIUM CHLORIDE 20 MEQ TAB CR PO STA (17:57)
[2024-07-15] VITALS (7 sets, daily range): BP systolic 97–125; BP diastolic 71–91; PULSE 69–79; RESP 18–20; TEMP 97.5–98.6; O2SAT 98–100
[2024-07-15 08:39] LABS: ANION GAP 14.4 mmol/L (8-16); CALCIUM 8.9 mg/dL (8.4-10.2); CREATININE, SERUM 1.93 mg/dL (0.72-1.25); POTASSIUM 3.4 mmol/L (3.5-5.1)
[2024-07-15] MEDS ORDERED: ALDACTONE50 MG PO (18:01)
[2024-07-15] MEDS ORDERED: CARVEDILOL3.125 MG PO (18:09)
[2024-07-15] MEDS ORDERED: ATORVASTATIN CA20 MG PO (18:09)
[2024-07-15] MEDS ORDERED: LOSARTAN POTASS25 MG PO (18:09)
[2024-07-15] MEDS ORDERED: LASIX40 MG PO (18:09)
== END 2024-07-15 18:40 | disposition home or self-care (01) | DRG 291 ==
LOC: ER 11:00 → ERHOLD 12:29 → UNDOADMIN 12:29 → MED/SURG2 14:00
PROVIDERS: ADMIT Internal Medicine; ATTEND Internal Medicine
DX: I13.0 Hypertensive heart and chronic kidney disease with heart failure and stage 1 through stage 4 chronic kidney disease, or unspecified chronic kidney disease (principal); I50.43 Acute on chronic combined systolic (congestive) and diastolic (congestive) heart failure; N18.30 Chronic kidney disease, stage 3 unspecified; E11.22 Type 2 diabetes mellitus with diabetic chronic kidney disease; J44.9 Chronic obstructive pulmonary disease, unspecified; E87.6 Hypokalemia; F15.10 Other stimulant abuse, uncomplicated; Z95.810 Presence of automatic (implantable) cardiac defibrillator; Z91.148 Patient's other noncompliance with medication regimen for other reason; Z11.52 Encounter for screening for COVID-19; Z79.899 Other long term (current) drug therapy; Z91.041 Radiographic dye allergy status
CPT/HCPCS: 36415; 36600; 71045; 80048; 80053; 80307; 80320; 82140; 82550; 82805; 82948; 83036; 83518; 83605; 83690; 83880; 84443; 84484; 85025; 87040; 87070; 87086; 93005; 93306; 94799; 99284; J1650; J1940; J2543; J7050

== ENCOUNTER 2024-12-12 22:20 | Inpatient (IN) | payer MEDICAID ==
[~2024-12-12] VITALS: Ht 167.6 cm; Wt 67.1 kg
[2024-12-12 22:20] VITALS: TEMP 98.3
[~2024-12-12 22:20] MED LIST changes: +ALDACTONE50 MG PO; +LOSARTAN POTASS25 MG PO; +SPIRONOLACTONE50 MG PEG
[2024-12-12 23:15] LABS: BASOPHILS % 0.2 % (0.0-1.0); EOSINOPHILS % 4.0 % (0.0-6.0); LYMPHOCYTES % 21.8 % (18.0-39.1); MONOCYTES % 12.8 % (4.4-11.3); NEUTROPHILS % 61.0 % (38.7-80.0); RED CELL DISTRIBUTION WIDTH 15.1 % (11.7-14.4)
[2024-12-12 23:24] LABS: EST GLOMERULAR FILTRATION RATE 42.0 ML/MIN (>=60)
[2024-12-12] MEDS: ONDANSETRON HCL INJ 2MG/ML 2ML 2 MG/ML VIAL IV STA (23:27)
[2024-12-13] VITALS (12 sets, daily range): BP systolic 126–143; BP diastolic 90–102; PULSE 69–87; RESP 16–22; TEMP 96.5–98.2; O2SAT 94–100
[2024-12-13] MEDS: ASPIRIN 81 MG CHEW TAB PO ONE (01:04)
[2024-12-13 05:44] LABS: CHOL/HDL RATIO 3.2 (3.9-4.7); LDL CHOLESTEROL 91.0 MG/DL (60-130)
[2024-12-13 06:07] LABS: T3 UPTAKE 34.29 % (22.5-37.0)
[2024-12-13 14:48] LABS: BASOPHILS % 0.6 % (0.0-1.0); EOSINOPHILS % 3.6 % (0.0-6.0); LYMPHOCYTES % 18.9 % (18.0-39.1); MONOCYTES % 13.9 % (4.4-11.3); NEUTROPHILS % 62.8 % (38.7-80.0); RED CELL DISTRIBUTION WIDTH 15.2 % (11.7-14.4)
[2024-12-13] MEDS ORDERED: LORAZEPAM INJ 2 MG/ML VIAL IV PRN (15:00)
[2024-12-13 15:11] LABS: EST GLOMERULAR FILTRATION RATE 40.0 ML/MIN (>=60)
[2024-12-13 15:49] LABS: LEUKOCYTE ESTERASE ,URINE TRACE (NEGATIVE); PROTEIN,URINE DIPSTICK 1+ (NEGATIVE); URINE UROBILINOGEN 2.0 mg/dL (0.2 - 1)
[2024-12-13 15:51] LABS: AMPHETAMINES SCREEN,URINE NEGATIVE (NEGATIVE); CANNABINOIDS SCREEN,URINE NEGATIVE (NEGATIVE); COCAINE SCREEN,URINE NEGATIVE (NEGATIVE); METHADONE SCREEN, URINE NEGATIVE (NEGATIVE); OPIATES SCREEN,URINE NEGATIVE (NEGATIVE)
[2024-12-13 16:18] LABS: EPITHELIAL CELLS,URINE RARE /LPF; WBC,URINE (MAN) 0-5 /HPF (0-5)
[2024-12-13] MEDS: MULTIVITAMINS- 12 INJECTION 10 ML, FOLIC ACID MDV 1 MG, THIAMINE HCL INJ 100 MG in SODI... IV ONE (16:23)
[2024-12-13] MEDS ORDERED: LACTULOSE SYRUP 20 GM/30 ML UDC PO PRN (17:45)
[2024-12-13] MEDS: FUROSEMIDE 40 MG TAB PO SCH (18:02)
[2024-12-13] MEDS: CARVEDILOL 3.125 MG TAB PO SCH (21:20)
[2024-12-14] VITALS (9 sets, daily range): BP systolic 125–142; BP diastolic 83–97; PULSE 73–87; RESP 16–22; TEMP 97.4–98.2; O2SAT 96–100
[2024-12-14 05:15] LABS: BASOPHILS % 0.5 % (0.0-1.0); EOSINOPHILS % 4.0 % (0.0-6.0); LYMPHOCYTES % 19.3 % (18.0-39.1); MONOCYTES % 11.3 % (4.4-11.3); NEUTROPHILS % 64.7 % (38.7-80.0); RED CELL DISTRIBUTION WIDTH 15.1 % (11.7-14.4)
[2024-12-14 05:44] LABS: EST GLOMERULAR FILTRATION RATE 47.0 ML/MIN (>=60)
[2024-12-14] MEDS: RIFAXIMIN 550 MG TABLET PO SCH (09:30)
[2024-12-14] MEDS: SPIRONOLACTONE 25 MG TAB PO SCH (09:31)
[2024-12-14] MEDS: ATORVASTATIN 20 MG TAB PO SCH (09:32)
[2024-12-14] MEDS: LOSARTAN POTASSIUM 25 MG TAB PO SCH (09:32)
[2024-12-15 04:41] VITALS: BP 125/77; PULSE 77; RESP 18; TEMP 98.1; O2SAT 96
[2024-12-15 05:15] LABS: BASOPHILS % 0.5 % (0.0-1.0); EOSINOPHILS % 4.9 % (0.0-6.0); LYMPHOCYTES % 15.3 % (18.0-39.1); MONOCYTES % 11.1 % (4.4-11.3); NEUTROPHILS % 67.9 % (38.7-80.0); RED CELL DISTRIBUTION WIDTH 14.8 % (11.7-14.4)
[2024-12-15 05:50] LABS: EST GLOMERULAR FILTRATION RATE 48.0 ML/MIN (>=60)
[2024-12-15 08:00] VITALS: BP 164/93; PULSE 69; RESP 17; TEMP 97.5; O2SAT 100
[2024-12-15 08:50] VITALS: BP 134/99; PULSE 69; RESP 18; TEMP 97.5; O2SAT 100
[2024-12-15 12:00] VITALS: BP 118/87; PULSE 74; RESP 17; TEMP 97.6; O2SAT 98
[2024-12-15] MEDS ORDERED: XIFAXAN550 MG PO (14:59)
[2024-12-15] MEDS ORDERED: COREG3.125 MG PO (14:59)
[2024-12-15] MEDS ORDERED: ATORVASTATIN CA20 MG PO (14:59)
[2024-12-15] MEDS ORDERED: COZAAR25 MG PO (14:59)
[2024-12-15] MEDS ORDERED: FUROSEMIDE40 MG PO (14:59)
[2024-12-15] MEDS ORDERED: LACTULOSE10 GM/151 PO (14:59)
[2024-12-15] MEDS ORDERED: ALDACTONE25 MG PO (14:59)
[2024-12-15 16:01] VITALS: BP 124/93; PULSE 70; RESP 18; TEMP 97.9; O2SAT 100
== END 2024-12-15 18:00 | disposition home or self-care (01) | DRG 291 ==
LOC: ER 22:40 → ERHOLD 12-13 00:38 → MED/SURG 12-13 01:21
PROVIDERS: ADMIT Internal Medicine; ATTEND Internal Medicine
DX: I13.0 Hypertensive heart and chronic kidney disease with heart failure and stage 1 through stage 4 chronic kidney disease, or unspecified chronic kidney disease (principal); I50.23 Acute on chronic systolic (congestive) heart failure; F15.10 Other stimulant abuse, uncomplicated; J44.9 Chronic obstructive pulmonary disease, unspecified; E11.22 Type 2 diabetes mellitus with diabetic chronic kidney disease; K74.60 Unspecified cirrhosis of liver; N18.30 Chronic kidney disease, stage 3 unspecified; R07.89 Other chest pain; K76.82 Hepatic encephalopathy; Z95.810 Presence of automatic (implantable) cardiac defibrillator; Z72.0 Tobacco use; Z91.041 Radiographic dye allergy status; Z91.148 Patient's other noncompliance with medication regimen for other reason
CPT/HCPCS: 36415; 70450; 71045; 80048; 80053; 80061; 80307; 81001; 82140; 82550; 82948; 83036; 83605; 83735; 83880; 84436; 84443; 84479; 84484; 85025; 87040; 93005; 94799; 99284; J2405; J3411; J7030

== ENCOUNTER 2025-01-23 04:04 | Inpatient (IN) | payer MEDICAID ==
[2025-01-23] VITALS (9 sets, daily range): BP systolic 132–156; BP diastolic 87–117; PULSE 74–99; RESP 14–20; TEMP 97–98.1; O2SAT 96–100
[~2025-01-23] VITALS: Ht 167.6 cm; Wt 67.1 kg
[~2025-01-23 04:04] MED LIST changes: +ALDACTONE25 MG PO; +COREG3.125 MG PO; +COZAAR25 MG PO; +FUROSEMIDE40 MG PO; +LACTULOSE10 GM/151 PO; +XIFAXAN550 MG PO
[2025-01-23 04:32] LABS: BASOPHILS % 0.7 % (0.0-1.0); EOSINOPHILS % 3.3 % (0.0-6.0); LYMPHOCYTES % 26.2 % (18.0-39.1); MONOCYTES % 9.9 % (4.4-11.3); NEUTROPHILS % 59.7 % (38.7-80.0); RED CELL DISTRIBUTION WIDTH 15.8 % (11.7-14.4)
[2025-01-23 04:51] LABS: OPIATES SCREEN,URINE NEGATIVE (NEGATIVE)
[2025-01-23 04:52] LABS: AMPHETAMINES SCREEN,URINE POSITIVE (NEGATIVE); CANNABINOIDS SCREEN,URINE NEGATIVE (NEGATIVE); COCAINE SCREEN,URINE NEGATIVE (NEGATIVE); METHADONE SCREEN, URINE NEGATIVE (NEGATIVE)
[2025-01-23 04:54] LABS: EST GLOMERULAR FILTRATION RATE 55.0 ML/MIN (>=60)
[2025-01-23] MEDS: FUROSEMIDE INJ 10 MG/ML 4 ML VIAL IV ONE (05:27)
[2025-01-23] MEDS: NITROGLYCERIN 2% OINT 1 GM PKT TOP ONE (05:27)
[2025-01-23] MEDS: SODIUM CHLORIDE FLUSH 10 ML SYR IV PRN (05:28)
[2025-01-23] MEDS ORDERED: ONDANSETRON HCL INJ 2MG/ML 2ML 2 MG/ML VIAL IV PRN (05:45)
[2025-01-23] MEDS ORDERED: SODIUM CHLORIDE FLUSH 10 ML SYR INJ PRN (05:45)
[2025-01-23] MEDS ORDERED: LACTULOSE SYRUP 20 GM/30 ML UDC PO PRN (10:45)
[2025-01-23] MEDS: HYDRALAZINE HCL 20 MG/ML VIAL IV PRN (11:57)
[2025-01-23] MEDS: RIFAXIMIN 550 MG TABLET PO SCH (16:25)
[2025-01-23] MEDS: ACETAMINOPHEN 325 MG TAB PO ONE (16:25)
[2025-01-23] MEDS: ENOXAPARIN SOD INJ 40 MG/0.4 ML SYR SC SCH (16:26)
[2025-01-23] MEDS: CARVEDILOL 12.5 MG TAB PO SCH (16:26)
[2025-01-23] MEDS: HYDRALAZINE HCL 20 MG/ML VIAL IV STA (16:29)
[2025-01-23] MEDS: FUROSEMIDE 40 MG TAB PO SCH (19:33)
[2025-01-24] VITALS: BP 144/104; PULSE 84; RESP 22; TEMP 97.5; O2SAT 100
[2025-01-24 05:42] LABS: BASOPHILS % 0.6 % (0.0-1.0); EOSINOPHILS % 4.7 % (0.0-6.0); LYMPHOCYTES % 17.2 % (18.0-39.1); MONOCYTES % 10.3 % (4.4-11.3); NEUTROPHILS % 66.9 % (38.7-80.0); RED CELL DISTRIBUTION WIDTH 15.5 % (11.7-14.4)
[2025-01-24 06:19] LABS: EST GLOMERULAR FILTRATION RATE 52.0 ML/MIN (>=60)
[2025-01-24 08:09] VITALS: BP 142/98; PULSE 62; RESP 18; TEMP 97.6; O2SAT 100
[2025-01-24 08:37] VITALS: BP 142/98; PULSE 62; RESP 18; TEMP 97.6; O2SAT 100
[2025-01-24] MEDS ORDERED: SPIRONOLACTONE 25 MG TAB PO SCH (09:00)
[2025-01-24] MEDS ORDERED: FUROSEMIDE INJ 10 MG/ML 4 ML VIAL IV SCH (09:00)
[2025-01-24] MEDS: MAGNESIUM SULFATE 2GM/50ML 50 ML IV ONE (09:26)
[2025-01-24] MEDS: POTASSIUM CHLORIDE 20 MEQ TAB CR PO ONE (09:26)
[2025-01-24] MEDS: CARVEDILOL 12.5 MG TAB PO SCH (09:27)
[2025-01-24] MEDS: SPIRONOLACTONE 25 MG TAB PO SCH (09:27)
[2025-01-24] MEDS: FUROSEMIDE 40 MG TAB PO SCH (09:28)
[2025-01-24] MEDS: LOSARTAN POTASSIUM 25 MG TAB PO SCH (09:28)
[2025-01-24 16:15] VITALS: BP 122/83; PULSE 65; RESP 20; TEMP 97.3; O2SAT 100
[2025-01-24 20:00] VITALS: BP 116/85; PULSE 71; RESP 18; TEMP 97.5; O2SAT 100
[2025-01-25] VITALS: BP 126/94; PULSE 68; RESP 17; TEMP 97.8; O2SAT 100
[2025-01-25 04:00] VITALS: BP 125/92; PULSE 69; RESP 18; TEMP 97.7; O2SAT 100
[2025-01-25 05:34] LABS: BASOPHILS % 0.5 % (0.0-1.0); EOSINOPHILS % 3.5 % (0.0-6.0); LYMPHOCYTES % 16.8 % (18.0-39.1); MONOCYTES % 10.9 % (4.4-11.3); NEUTROPHILS % 68.1 % (38.7-80.0); RED CELL DISTRIBUTION WIDTH 15.7 % (11.7-14.4)
[2025-01-25 06:01] LABS: EST GLOMERULAR FILTRATION RATE 53.0 ML/MIN (>=60)
[2025-01-25 08:21] VITALS: BP 128/84; PULSE 64; RESP 19; TEMP 97.5; O2SAT 100
[2025-01-25 08:56] VITALS: BP 128/84; PULSE 64; RESP 19; TEMP 97.5; O2SAT 100
[2025-01-25] MEDS: SPIRONOLACTONE 25 MG TAB PO SCH (09:04)
[2025-01-25] MEDS: FUROSEMIDE 40 MG TAB PO SCH (09:04)
[2025-01-25 12:13] VITALS: BP 117/88; PULSE 61; RESP 19; TEMP 97.7; O2SAT 100
[2025-01-25] MEDS ORDERED: ALDACTONE25 MG PO (12:55)
[2025-01-25] MEDS ORDERED: COREG12.5 MG PO (12:56)
[2025-01-25] MEDS ORDERED: ENULOSE10 GM/15 M PO (12:59)
== END 2025-01-25 13:45 | disposition home or self-care (01) | DRG 291 ==
LOC: ER 04:12 → ERHOLD 05:32 → MED/SURG2 06:11 → OBSVTOIN 09:41
PROVIDERS: ADMIT Family Medicine Adult Medicine; ATTEND Family Medicine Adult Medicine
DX: I13.0 Hypertensive heart and chronic kidney disease with heart failure and stage 1 through stage 4 chronic kidney disease, or unspecified chronic kidney disease (principal); G92.8 Other toxic encephalopathy; I50.23 Acute on chronic systolic (congestive) heart failure; N18.30 Chronic kidney disease, stage 3 unspecified; E11.22 Type 2 diabetes mellitus with diabetic chronic kidney disease; F15.10 Other stimulant abuse, uncomplicated; I16.0 Hypertensive urgency; J44.9 Chronic obstructive pulmonary disease, unspecified; K74.60 Unspecified cirrhosis of liver; T43.655A Adverse effect of methamphetamines, initial encounter; I42.8 Other cardiomyopathies; E78.5 Hyperlipidemia, unspecified; I44.7 Left bundle-branch block, unspecified; Z72.0 Tobacco use; Z95.810 Presence of automatic (implantable) cardiac defibrillator; Z91.148 Patient's other noncompliance with medication regimen for other reason; Z91.041 Radiographic dye allergy status
CPT/HCPCS: 36415; 70450; 71045; 80053; 80307; 82140; 82550; 83735; 83880; 84443; 84484; 85025; 93005; 94760; 99285; J0360; J1650; J1938; J3475